=== PATIENT | male | born 1960 | race Caucasian/White ===

== ENCOUNTER 2017-02-24 10:34 | Day surgery (SDC) | payer OTHER ==
[~2017-02-24] VITALS: Ht 170.2 cm; Wt 110.7 kg
[~2017-02-24 10:34] MED LIST: BAYER ADVANCED500 MG PO; MOBIC15 MG PO
[2017-02-24 11:33] VITALS: BP 143/84
[2017-02-24 18:49] VITALS: BP 149/77
[2017-02-24 20:13] VITALS: BP 142/84
== END 2017-02-24 20:25 | disposition home or self-care (01) ==
LOC: SDC 10:34
DX: M75.111 Incomplete rotator cuff tear or rupture of right shoulder, not specified as traumatic (principal); M75.21 Bicipital tendinitis, right shoulder; M19.011 Primary osteoarthritis, right shoulder; M25.511 Pain in right shoulder; Z79.82 Long term (current) use of aspirin; Z68.38 Body mass index [BMI] 38.0-38.9, adult; Z83.3 Family history of diabetes mellitus; Z82.49 Family history of ischemic heart disease and other diseases of the circulatory system; Z82.61 Family history of arthritis
CPT/HCPCS: C1713; J0171; J0330; J0690; J1100; J2250; J2405; J2550; J2765; J2795; J3010; S0020